=== PATIENT | male | born 1975 | race Caucasian/White ===

== ENCOUNTER 2018-06-23 08:06 | Observation (INO) | payer BC ==
[~2018-06-23] VITALS: Ht 160 cm; Wt 103.7 kg
[2018-06-23 08:37] LABS: BASO # 0.1 10^3/uL (0.0-0.2); BASO % 0.4 % (0.0-1.0); EOS # 0.1 10^3/uL (0.0-0.50); EOS % 0.8 % (0.0-3.0); HEMATOCRIT 44.5 % (42.0-52.0); HEMOGLOBIN 15.2 g/dl (13.5-17.5); LYMPH # 1.2 10^3/uL (1.5-4.5); LYMPH % 8.5 % (24.0-44.0); MEAN CORPUSCULAR HEMOGLOBIN 29.6 pg (27.0-33.0); MEAN CORPUSCULAR HGB CONC 34.2 g/dl (32.0-36.5); MEAN CORPUSCULAR VOLUME 86.6 fl (80.0-96.0); MONO # 1.1 10^3/uL (0.0-0.8); MONO % 7.5 % (0.0-5.0); NEUTROPHILS # 11.8 10^3/uL (1.8-7.7); NEUTROPHILS % 82.3 % (36.0-66.0); PLATELET COUNT, AUTOMATED 228 10^3/uL (150-450); RED BLOOD COUNT 5.14 10^6/uL (4.30-6.10); WHITE BLOOD COUNT 14.3 10^3/uL (4.0-10.0)
[2018-06-23] MEDS ORDERED: IBUPROFEN 800 MG TAB PO ONE (09:00)
[2018-06-23] MEDS ORDERED: NS 3,440 ML in APPROPRIATE DILUENT 1 EA IV ONE (09:00)
[2018-06-23] MEDS ORDERED: NS 1,000 ML IV ONE (09:00)
[2018-06-23] MEDS ORDERED: CLINDAMYCIN 600 MG in APPROPRIATE DILUENT 1 EA IV ONE (09:00)
[2018-06-23 09:05] LABS: ALBUMIN 3.9 GM/DL (3.2-5.2); ALT/SGPT 37 U/L (12-78); BILIRUBIN,DIRECT 0.2 MG/DL (0.0-0.2); BILIRUBIN,TOTAL 1.2 MG/DL (0.2-1.0); BLOOD UREA NITROGEN 11 MG/DL (7-18); CALCIUM LEVEL 8.8 MG/DL (8.5-10.1); CARBON DIOXIDE LEVEL 30 MEQ/L (21-32); CHLORIDE LEVEL 101 MEQ/L (98-107); CREATININE FOR GFR 1.07 MG/DL (0.70-1.30); GLOMERULAR FILTRATION RATE > 60.0 (>60); GLUCOSE, FASTING 304 MG/DL (70-100); POTASSIUM SERUM 3.9 MEQ/L (3.5-5.1); SODIUM LEVEL 136 MEQ/L (136-145); TOTAL PROTEIN 7.5 GM/DL (6.4-8.2)
[2018-06-23 11:47] LABS: HEMOGLOBIN A1c 8.9 %
[2018-06-23] MEDS ORDERED: BREO1INH3 INH (12:13)
[2018-06-23] MEDS ORDERED: LEVA1.2525 INH (12:13)
[2018-06-23 13:52] LABS: ERYTHROCYTE SEDIMENTATION RATE 36 mm/hr (0-15)
--- NOTE | 2018-06-23 14:28 | HPE ---
DATE OF ADMISSION: 06/23/2018 PRIMARY CARE PHYSICIAN: None. ENVIRONMENTAL TECHNICAL OFFICER: Dr. Ball CHIEF COMPLAINT: Left elbow pain. HISTORY OF THE PRESENT ILLNESS: The patient is a fairly healthy 43-year-old man who tells me that working several days ago at [employer], he banged his elbow on something. Shortly thereafter, he noticed some tenderness and swelling, which progressively worsened. He noted that last night he was having fevers and chills. This morning, it became more red and difficult to move, prompting him to present to the emergency room. At the present time, he tells me that he is feeling well, and after receiving some antibiotics, he is feeling improved. On review of systems, he does complain of recent polyuria, polydipsia that has been going on for several months. He was noted to have an elevated blood glucose in the emergency room as well. PAST MEDICAL HISTORY: Asthma. PAST SURGICAL HISTORY: Right elbow surgery. Septoplasty. Tonsillectomy. ALLERGIES: Patient does not remember the reactions; however, SULFA, AMOXICILLIN, CEFADROXIL, CLAVULANIC ACID, ERYTHROMYCIN, TETRACYCLINE. FAMILY HISTORY: Noncontributory. HOME MEDICATIONS: - Breo Ellipta 200-25 mcg one puff inhaled daily - levalbuterol nebulizer every 4 hours as needed for shortness of breath SOCIAL HISTORY: He works two jobs. 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 He did have one beer last night, but otherwise had not had an alcoholic beverage in 2 months. He denies any tobacco or illicit drug use. He is a [employer]. OBJECTIVE: VITAL SIGNS: Temperature 100, pulse 80, respiratory rate 18, blood pressure 153/91, oxygen saturation 94% on room air. GENERAL: He is a very pleasant middle-aged man sitting on a chair. He does not appear to be in any acute distress. HEENT: He has a large watt. Moist mucous membranes. NECK: No elevation of CVP. CARDIOVASCULAR EXAM: S1, S2 regular. RESPIRATORY EXAM: Clear. ABDOMINAL EXAM: Benign and obese. EXTREMITIES: He does have significant erythema, which has been outlined by the emergency room staff, of the left elbow. Otherwise no clubbing, cyanosis, or edema. He does have numerous tattoos. LABORATORY STUDIES: WBC 14.3, hemoglobin 15.2, platelet count 228. Chemistry panel: Sodium 136, potassium 3.9, chloride 101, bicarbonate 30, BUN 11, creatinine 1.0, lactic acid 1.3. Liver function tests essentially unremarkable. CRP is elevated at 10.4. Microbiology: Blood cultures were drawn and pending. X-RAYS: The patient did have an elbow x-ray, the results of which are currently pending. ASSESSMENT AND PLAN: This is a 43-year-old man with cellulitis, possible left elbow abscess and new diagnosis of diabetes. PROBLEMS: 1. Cellulitis. I will check an ultrasound to ensure that there is no deeper soft tissue abscess that required drainage. I will continue him on clindamycin, which he appears to be responding to quite well. He does have a low grade temperature and leukocytosis with evidence of early sepsis. He is actually hypertensive, so will hold off on providing him any IV fluids and monitor him closely. He does appear to be improving already. Advised warm compresses to the left elbow. I did suggest to him that he should notify his employer as this was on-site injury. 2. New onset diabetes. Polyuria, polydipsia with a glucose greater than 300. I will start him on metformin 500 mg by mouth twice a day, check hemoglobin A1c. I advise diabetic teaching. He will need to be set up with a Glucometer before discharge. I think he told me that he is arranging for a new primary care provider himself already. 3. Hypertension. Likely secondary to pain. Will continue to monitor closely. Should he need medication for this, will provide him with low dose lisinopril. 4. Asthma. Continue with albuterol nebulizers as needed. He does not exhibit any wheezing, is quite well compensated. His symptoms are well controlled at this time. DISPOSITION: The patient is admitted to observation status to the medical-surgical floor. He may be able to go home as early as tomorrow. Will continue to monitor very closely.
[2018-06-23] MEDS: CLINDAMYCIN 600 MG in APPROPRIATE DILUENT 1 EA IV SCH ×2 (14:53→21:23)
[2018-06-23 16:00] VITALS: BP 178/102
[2018-06-23] MEDS: LISINOPRIL 10 MG TAB PO SCH (16:12)
[2018-06-23] MEDS: ACETAMINOPHEN TAB 650MG DOSE (2X325MG) PO PRN (16:12)
[2018-06-23 17:00] VITALS: BP 158/86
[2018-06-23] MEDS: metFORMIN (GLUCOPHAGE) 500 MG TAB PO SCH (17:18)
[2018-06-23 22:00] VITALS: BP 152/78
[2018-06-24] MEDS: CLINDAMYCIN 600 MG in APPROPRIATE DILUENT 1 EA IV SCH ×4 (03:28→21:21)
[2018-06-24 06:00] VITALS: BP 132/62
[2018-06-24 06:08] LABS: HEMOGLOBIN 14.2 g/dl (13.5-17.5); MEAN CORPUSCULAR HGB CONC 33.8 g/dl (32.0-36.5); MEAN CORPUSCULAR VOLUME 88.6 fl (80.0-96.0); PLATELET COUNT, AUTOMATED 205 10^3/uL (150-450); RED BLOOD COUNT 4.74 10^6/uL (4.30-6.10); WHITE BLOOD COUNT 15.2 10^3/uL (4.0-10.0)
[2018-06-24 06:23] LABS: BLOOD UREA NITROGEN 15 MG/DL (7-18); CALCIUM LEVEL 8.8 MG/DL (8.5-10.1); CARBON DIOXIDE LEVEL 29 MEQ/L (21-32); CHLORIDE LEVEL 103 MEQ/L (98-107); CREATININE FOR GFR 0.97 MG/DL (0.70-1.30); GLOMERULAR FILTRATION RATE > 60.0 (>60); GLUCOSE, FASTING 208 MG/DL (70-100); POTASSIUM SERUM 3.8 MEQ/L (3.5-5.1); SODIUM LEVEL 139 MEQ/L (136-145)
[2018-06-24] MEDS: metFORMIN (GLUCOPHAGE) 500 MG TAB PO SCH ×2 (08:52→17:19)
[2018-06-24] MEDS: ACETAMINOPHEN TAB 650MG DOSE (2X325MG) PO PRN ×2 (08:53)
[2018-06-24] MEDS: LISINOPRIL 10 MG TAB PO SCH (08:57)
--- NOTE | 2018-06-24 09:11 | REP ---
Left elbow for views: I suspect soft tissue edema, predominately posterior. This should be confirmed clinically. There is no fracture or dislocation. Mineralization joint spaces are normal. There are no calcifications or foreign bodies. Impression: The skeletal structures are unremarkable. Soft tissue edema. Electronically Signed by Emir Ramirez MD 06/23/2018 08:51 A
--- NOTE | 2018-06-24 09:16 | REP ---
Ultrasound of the soft tissues at the left elbow and proximal forearm an area of spider bite: There is diffuse soft tissue edema throughout the area. At the elbow. There is a focal fluid collection containing complex fluid measuring 2.2 127 x 0.6 cm. With color Doppler assessment there is hyperemia at this area. This fluid collection may represent an abscess. There is a tract extending to the skin surface from this fluid collection. Electronically Signed by Emir Ramirez MD 06/23/2018 01:36 P
--- NOTE | 2018-06-24 13:55 | IPNPDOC ---
Date Seen The patient was seen on 06/24/18. Progress Note SUBJECTIVE: Patient complains of continued swelling left upper extremity tells me is less painful and is able to move it and started draining a little bit this morning OBJECTIVE PHYSICAL EXAMINATION: VITAL SIGNS: Please see below. GENERAL: Pleasant middle-aged obese man lying in bed he is currently by a friend the patient does not appear to be in any acute distress HEENT: Cranial nerves II through XII grossly intact CARDIOVASCULAR: Is 1 S2 regular. RESPIRATORY: Clear to auscultation bilaterally. ABDOMINAL: Obese bowel sounds present abdomen soft and nontender EXTREMITIES: 1+ edema to the left distal upper extremity decreased erythema there is some purulent drainage superficially into express approximately 3-4 mL further out LABORATORY DATA, IMAGING STUDIES, MICROBIOLOGY: Please see below. DVT prophylaxis ordered?: Ambulation ASSESSMENT AND PLAN: This is a 43-year-old man with cellulitis abscess at the left elbow as well as a new diagnosis of diabetes PROBLEMS: 1. Cellulitis and abscess. Fluid collection documented on ultrasound does appear to be draining somewhat today he tells me has not received any warm compresses and his abscess is actually covered with foam dressing at presentation and with stressing informed that it was to remain open also did speak with nursing staff greatly encourage warm compresses to help with the drainage he does have signi ficant swelling of the left upper extremity although is not erythematous I've encouraged him to keep it elevated. 2. New onset diabetes. Polyuria, polydipsia with a glucose greater than 300. I have started him on metformin 500 mg by mouth twice a day, A1c is elevated he is likely been undiagnosed for quite some time. I advise diabetic teaching. He will need to be set up with a Glucometer before discharge. I think he told me that he is arranging for a new primary care provider himself already. Finished 6 are controlled with metformin 3. Hypertension. Improved control after initiation of lisinopril 4. Asthma. Continue with albuterol nebulizers as needed. He does not exhibit any wheezing, is quite well compensated. His symptoms are well controlled at this time. DISPOSITION: Possibly home within the next 24-48 hours VS, I&O, 24H, Fishbone Vital Signs/I&O Vital Signs Date Time Temp Pulse Resp B/P (MAP) Pulse Ox O2 Delivery O2 Flow Rate FiO2 06/24/18 08:57 139/63 06/24/18 06:00 99.5 74 18 93 06/23/18 08:07 Room Air I&O- Last 24 Hours up to 6 AM 06/24/18 06:00 Intake Total 1520 ml Output Total 0 ml Balance 1520 ml Laboratory Data 24H LABS Laboratory Tests 2 06/23/18 17:00: Bedside Glucose (Misc Panel) 237H 06/23/18 21:51: Bedside Glucose (Misc Panel) 207H 06/24/18 05:43: Anion Gap 7L, Glomerular Filtration Rate > 60.0, Blood Urea Nitrogen 15, Creatinine 0.97, Sodium Level 139, Potassium Level 3.8, Chloride Level 103, Carbon Dioxide Level 29, Calcium Level 8.8 06/24/18 05:44: Nucleated Red Blood Cells % (auto) 0.0 06/24/18 11:29: Bedside Glucose (Misc Panel) 210H CBC/BMP Laboratory Tests 06/24/18 05:43 Calcium Level 8.8 06/24/18 05:44 Red Blood Count 4.74, Mean Corpuscular Volume 88.6, Mean Corpuscular Hemoglobin 30.0, Mean Corpuscular Hemoglobin Concent 33.8, Red Cell Distribution Width 12.8 Microbiology Microbiology 06/23/18 Blood Culture - Preliminary, Resulted No growth after 24 hours . All specim... 06/23/18 Blood Culture - Preliminary, Resulted No growth after 24 hours . All specim... RYAN CORTES MD Jun 24, 2018 13:55
[2018-06-24 14:00] VITALS: BP 139/62
[2018-06-24 17:47] VITALS: BP 165/86
[2018-06-24 20:00] VITALS: BP 189/74
[2018-06-24] MEDS ORDERED: **hydrALAZINE HCL** 25 MG TAB PO PRN (20:30)
[2018-06-24] MEDS: LEVALBUTEROL 1.25 MG/0.5 ML CONCENTRATE NEB INH PRN (21:21)
[2018-06-24 21:30] VITALS: BP_SYST 176; BP_SYST 179; BP_DIAS 72; BP_DIAS 92
[2018-06-25] VITALS: BP 145/63
[2018-06-25] MEDS: CLINDAMYCIN 600 MG in APPROPRIATE DILUENT 1 EA IV SCH ×2 (03:30→09:24)
[2018-06-25] MEDS: LEVALBUTEROL 1.25 MG/0.5 ML CONCENTRATE NEB INH PRN (05:07)
[2018-06-25 07:18] LABS: HEMATOCRIT 40.5 % (42.0-52.0); HEMOGLOBIN 13.7 g/dl (13.5-17.5); MEAN CORPUSCULAR HEMOGLOBIN 29.8 pg (27.0-33.0); MEAN CORPUSCULAR HGB CONC 33.8 g/dl (32.0-36.5); PLATELET COUNT, AUTOMATED 198 10^3/uL (150-450); WHITE BLOOD COUNT 9.6 10^3/uL (4.0-10.0)
[2018-06-25 07:40] LABS: BLOOD UREA NITROGEN 15 MG/DL (7-18); CALCIUM LEVEL 8.6 MG/DL (8.5-10.1); CARBON DIOXIDE LEVEL 29 MEQ/L (21-32); CHLORIDE LEVEL 105 MEQ/L (98-107); CREATININE FOR GFR 0.81 MG/DL (0.70-1.30); GLOMERULAR FILTRATION RATE > 60.0 (>60); GLUCOSE, FASTING 208 MG/DL (70-100); SODIUM LEVEL 137 MEQ/L (136-145)
[2018-06-25 08:00] VITALS: BP 156/78
[2018-06-25] MEDS ORDERED: CLEO300C2 PO (08:08)
[2018-06-25] MEDS ORDERED: GLUC500T PO (08:09)
[2018-06-25] MEDS ORDERED: LISI10TA4 PO (08:09)
[2018-06-25] MEDS ORDERED: SUMAtriptan SUCCINATE 25 MG TAB PO ONE (08:15)
[2018-06-25] MEDS: ACETAMINOPHEN TAB 650MG DOSE (2X325MG) PO PRN (08:19)
[2018-06-25] MEDS: metFORMIN (GLUCOPHAGE) 500 MG TAB PO SCH (08:20)
[2018-06-25 09:24] VITALS: BP 156/78
[2018-06-25] MEDS: LISINOPRIL 10 MG TAB PO SCH (09:24)
--- NOTE | 2018-06-25 15:21 | DSES ---
DATE OF ADMISSION: 06/23/2018 DATE OF DISCHARGE: 06/25/2018 DISCHARGE DIAGNOSIS: Left elbow abscess. SECONDARY DIAGNOSES: 1. New onset type 2 diabetes. 2. New onset hypertension. 3. Asthma. HOSPITAL COURSE: The patient is a 43-year-old man who had injured his elbow while banging it at work. He works at [employer]. Shortly thereafter, it became tender, swollen and red. It progressed swelled worse until it became difficult to move and painful for him, as well as having chills and fevers at home. He was admitted to the emergency room. He was started on clindamycin. While in the emergency room, he was found to have an elevated blood glucose level and found to be hypertensive. It was initially felt to be secondary to his pain. He was admitted to the hospitalist service. He was noted to have a hemoglobin A1/c elevated. In review of systems, he provided a history of polyuria, polydipsia. He does carry a new diagnosis of type 2 diabetes. He has been started on metformin 500 mg by mouth twice a day and has received diabetic teaching and how to use a Glucometer and one has been supplied to him. In regard to his left elbow abscess, warm compresses were placed. It did begin to drain spontaneously. He did have an ultrasound that did show a fluid collection prior to this. He was provided with clindamycin IV, but will be discharged home on oral clindamycin to complete a 10 day course. He has decreased erythema, swelling and tenderness and improved range of motion to the left elbow. SUBJECTIVE: This morning, the patient tells me that he is feeling well. He has a little bit of a headache but otherwise no complaints and would like to go home. OBJECTIVE: VITAL SIGNS: Temperature 98.3, pulse 88, respiratory rate 19, blood pressure 156/78, oxygen saturation 96% on room air. GENERAL: He is a very pleasant, obese, middle aged, man lying in bed. He is in no acute distress. HEENT: He does have a large watt. Moist mucous membranes. No elevation in central venous pressure. CARDIOVASCULAR: S1, S2 regular. RESPIRATORY EXAM: Clear. ABDOMINAL EXAM: Obese. Bowel sounds present. The abdomen is soft. EXTREMITIES: No clubbing or cyanosis. He has some trace edema in his left hand, decreased erythema, purulent drainage from the left elbow. Good range of motion. Reduced erythema and tenderness. LABORATORY STUDIES: WBC 9.6, down from 14.3 at the time of admission, hemoglobin 13.7, platelet count 198. Chemistry panel: Sodium 137, potassium 4.0, chloride 105, bicarbonate 29, BUN 15, creatinine 0.8. Microbiology was negative. IMAGING: As outlined above. ASSESSMENT AND PLAN: This is a 43-year-old man with abscess of the left elbow, as well as a new diagnosis of diabetes and hypertension. 1. Abscess of the left elbow with surrounding cellulitis, status post spontaneous drainage after warm compress. He will complete 10 days of clindamycin orally. He is advised to keep it elevated for the next few days to have the swelling decrease. He is advised to return to the emergency room should he have any fevers or chills. He was advised to leave the wound open to drainage, does not require any packing. It does appear to be improving. Followup with new primary care provider as soon as possible. 2. New onset diabetes. He does have a history of polyuria, polydipsia and a random glucose greater than 300. He has been started on metformin 500 mg by mouth twice a day. During his stay, he has received significant diabetic teaching and has already been supplied with a Glucometer. His fingersticks have been controlled with metformin. He will have to followup with his new primary care provider as soon as possible. 3. Hypertension. He was initiated on Lisinopril, which he has tolerated well. He will be discharged on this and followup with his primary care provider. Lifestyle modifications advised. 4. Morbid obesity, complicating care. 5. Asthma, stable and at baseline. He uses albuterol nebulizers, as well as Breo Ellipta and follows with Dr. Ball on the outpatient setting. DISPOSITION: The patient is being discharged home. He is independent of his activities of daily living. He is to be off work until after June 29. Followup with his primary care provider as soon as possible. Followup with hydrological technical officer as scheduled. Otherwise, his activity is as tolerated. Diet is consistent carbohydrate, 2-gram sodium. He is to return to the emergency room if his symptoms worsen. MEDICATIONS: At the time of discharge: - clindamycin 300 mg three times a day for 10 days - Lisinopril 10 mg daily - metformin 500 mg by mouth twice a day - Breo Ellipta 200/25 one puff inhaled daily - levalbuterol nebulizer 1.25 mg inhaled every 4 hours as needed for shortness of breath 45 minutes was spent organizing disposition.
== END 2018-06-25 12:40 | disposition home or self-care (01) ==
LOC: M ED 08:06 → M ED INP 12:13 → M MS5PR 14:00 → M PED 06-24 17:45
PROVIDERS: ADMIT Internal Medicine; ATTEND Internal Medicine
DX: L02.414 Cutaneous abscess of left upper limb (principal); E11.9 Type 2 diabetes mellitus without complications; I10 Essential (primary) hypertension; J45.909 Unspecified asthma, uncomplicated; E66.01 Morbid (severe) obesity due to excess calories; R50.9 Fever, unspecified; D72.829 Elevated white blood cell count, unspecified; Z79.899 Other long term (current) drug therapy; Z79.51 Long term (current) use of inhaled steroids; Z88.0 Allergy status to penicillin; Z88.1 Allergy status to other antibiotic agents; Z88.2 Allergy status to sulfonamides

== ENCOUNTER → 2018-07-27 | Outpatient (REF) | payer BC ==
[~2018-07-27] MED LIST: BREO1INH3 INH; CLEO300C2 PO; GLUC500T PO; LEVA1.2525 INH; LISI10TA4 PO
[2018-07-27 12:48] LABS: APPEARANCE, URINE CLEAR (CLEAR); BACTERIA, URINE AUTO NEGATIVE (NEGATIVE); BILIRUBIN, URINE AUTO NEGATIVE (NEGATIVE); BLOOD, URINE BLOOD NEGATIVE (NEGATIVE); COLOR, URINE YELLOW (YELLOW); GLUCOSE, URINE (UA) AUTO NEGATIVE (NEGATIVE); KETONE, URINE AUTO NEGATIVE (NEGATIVE); LEUKOCYTE ESTERASE, URINE AUTO NEGATIVE (NEGATIVE); NITRITE, URINE AUTO NEGATIVE (NEGATIVE); PROTEIN, URINE AUTO NEGATIVE (NEGATIVE); RBC, URINE AUTO 0 /HPF (0-3); SPECIFIC GRAVITY URINE AUTO 1.012 (1.002-1.035); SQUAMOUS EPITHELIAL CELL UR AU 0 /HPF (0-6); UROBILINOGEN, URINE AUTO 0.2 mg/dL (0.0-2.0); WBC, URINE AUTO 1 /HPF (0-3)
[2018-07-27 13:23] LABS: CREATININE, URINE 92.7 MG/DL; MALB URINE SIEMENS 22.5 MG/L; MAU/CREAT RATIO 24.2 MCG/MG (0.0-30.0)
[2018-07-27 13:24] LABS: BASO % 0.8 % (0.0-1.0); EOS # 0.1 10^3/uL (0.0-0.50); EOS % 1.6 % (0.0-3.0); HEMATOCRIT 45.6 % (42.0-52.0); HEMOGLOBIN 15.1 g/dl (13.5-17.5); LYMPH % 20.6 % (24.0-44.0); MEAN CORPUSCULAR HEMOGLOBIN 29.9 pg (27.0-33.0); MEAN CORPUSCULAR HGB CONC 33.1 g/dl (32.0-36.5); MEAN CORPUSCULAR VOLUME 90.3 fl (80.0-96.0); MONO # 0.5 10^3/uL (0.0-0.8); MONO % 10.8 % (0.0-5.0); NEUTROPHILS # 3.2 10^3/uL (1.8-7.7); NEUTROPHILS % 65.8 % (36.0-66.0); PLATELET COUNT, AUTOMATED 205 10^3/uL (150-450); RED BLOOD COUNT 5.05 10^6/uL (4.30-6.10); WHITE BLOOD COUNT 4.9 10^3/uL (4.0-10.0)
[2018-07-27 13:29] LABS: ALBUMIN 3.9 GM/DL (3.2-5.2); ALT/SGPT 52 U/L (12-78); BILIRUBIN,TOTAL 1.8 MG/DL (0.2-1.0); BLOOD UREA NITROGEN 15 MG/DL (7-18); CALCIUM LEVEL 8.6 MG/DL (8.5-10.1); CARBON DIOXIDE LEVEL 34 MEQ/L (21-32); CHLORIDE LEVEL 105 MEQ/L (98-107); CHOLESTEROL LEVEL 151 MG/DL (<200); CHOLESTEROL RISK RATIO 4.314 (<5); FREE T4 0.95 NG/DL (0.76-1.46); GLOMERULAR FILTRATION RATE > 60.0 (>60); GLUCOSE, FASTING 116 MG/DL (70-100); HDL CHOLESTEROL 35 MG/DL (>40); LDL CHOLESTEROL 94 MG/DL (<100); NON-HDL-C 116 MG/DL; POTASSIUM SERUM 4.3 MEQ/L (3.5-5.1); SODIUM LEVEL 141 MEQ/L (136-145); TOTAL 25(OH) VITAMIN D 22.3 NG/ML (30.0-100.0); TOTAL PROTEIN 6.9 GM/DL (6.4-8.2); TRIGLYCERIDES LEVEL 109 MG/DL (<150)
[2018-07-27 13:55] LABS: HEMOGLOBIN A1c 7.6 %
[2018-08-01 00:08] LABS: Lyme Disease IgG/IgM Antibodie <0.91 ISR (0.00-0.90); Lyme Disease IgM Ab Quantitati <0.80 index (0.00-0.79)
== END ==
LOC: M LAB REF 12:10
PROVIDERS: ATTEND Family Medicine
DX: Z13.228 Encounter for screening for other metabolic disorders (principal); E11.9 Type 2 diabetes mellitus without complications

== ENCOUNTER → 2018-11-02 | Outpatient (REF) | payer BC ==
[2018-11-02 13:33] LABS: ALBUMIN 4.2 GM/DL (3.2-5.2); ALT/SGPT 43 U/L (12-78); BILIRUBIN,TOTAL 1.3 MG/DL (0.2-1.0); BLOOD UREA NITROGEN 19 MG/DL (7-18); CALCIUM LEVEL 8.9 MG/DL (8.5-10.1); CARBON DIOXIDE LEVEL 31 MEQ/L (21-32); CHLORIDE LEVEL 104 MEQ/L (98-107); CHOLESTEROL LEVEL 164 MG/DL (<200); CHOLESTEROL RISK RATIO 4.315 (<5); CREATININE FOR GFR 0.88 MG/DL (0.70-1.30); GLOMERULAR FILTRATION RATE > 60.0 (>60); GLUCOSE, FASTING 120 MG/DL (70-100); HDL CHOLESTEROL 38 MG/DL (>40); LDL CHOLESTEROL 100 MG/DL (<100); NON-HDL-C 126 MG/DL; POTASSIUM SERUM 4.6 MEQ/L (3.5-5.1); SODIUM LEVEL 140 MEQ/L (136-145); TOTAL PROTEIN 6.8 GM/DL (6.4-8.2); TRIGLYCERIDES LEVEL 132 MG/DL (<150)
[2018-11-02 13:43] LABS: HEMOGLOBIN A1c 6.4 %
== END ==
LOC: M LAB REF 12:10
PROVIDERS: ATTEND Family Medicine
DX: E11.9 Type 2 diabetes mellitus without complications (principal)

== ENCOUNTER → 2019-02-06 | Outpatient (REF) | payer BC ==
[2019-02-06 13:16] LABS: ALBUMIN 4.3 GM/DL (3.2-5.2); ALT/SGPT 54 U/L (12-78); BLOOD UREA NITROGEN 22 MG/DL (7-18); CALCIUM LEVEL 9.3 MG/DL (8.5-10.1); CARBON DIOXIDE LEVEL 33 MEQ/L (21-32); CHLORIDE LEVEL 104 MEQ/L (98-107); CHOLESTEROL LEVEL 206 MG/DL (<200); CHOLESTEROL RISK RATIO 6.645 (<5); CREATININE FOR GFR 1.02 MG/DL (0.70-1.30); GLOMERULAR FILTRATION RATE > 60.0 (>60); GLUCOSE, FASTING 118 MG/DL (70-100); HDL CHOLESTEROL 31 MG/DL (>40); LDL CHOLESTEROL 139 MG/DL (<100); NON-HDL-C 175 MG/DL; POTASSIUM SERUM 4.7 MEQ/L (3.5-5.1); SODIUM LEVEL 142 MEQ/L (136-145); TRIGLYCERIDES LEVEL 182 MG/DL (<150)
[2019-02-06 13:25] LABS: HEMOGLOBIN A1c 6.5 %
== END ==
LOC: M LAB REF 11:53
PROVIDERS: ATTEND Family Medicine
DX: E11.9 Type 2 diabetes mellitus without complications (principal)

== ENCOUNTER → 2019-05-07 | Outpatient (REF) | payer BC ==
[2019-05-07 13:14] LABS: ALBUMIN 4.2 GM/DL (3.2-5.2); ALT/SGPT 61 U/L (12-78); BLOOD UREA NITROGEN 22 MG/DL (7-18); CALCIUM LEVEL 9.2 MG/DL (8.5-10.1); CARBON DIOXIDE LEVEL 31 MEQ/L (21-32); CHLORIDE LEVEL 106 MEQ/L (98-107); CHOLESTEROL LEVEL 161 MG/DL (<200); CHOLESTEROL RISK RATIO 4.878 (<5); CREATININE FOR GFR 0.98 MG/DL (0.70-1.30); GLOMERULAR FILTRATION RATE > 60.0 (>60); GLUCOSE, FASTING 114 MG/DL (70-100); HDL CHOLESTEROL 33 MG/DL (>40); LDL CHOLESTEROL 82 MG/DL (<100); NON-HDL-C 128 MG/DL; POTASSIUM SERUM 4.5 MEQ/L (3.5-5.1); SODIUM LEVEL 140 MEQ/L (136-145); TOTAL PROTEIN 6.8 GM/DL (6.4-8.2); TRIGLYCERIDES LEVEL 231 MG/DL (<150)
[2019-05-07 17:25] LABS: HEMOGLOBIN A1c 6.9 %
== END ==
LOC: M LAB REF 12:19
PROVIDERS: ATTEND Family Medicine
DX: E11.9 Type 2 diabetes mellitus without complications (principal); E78.5 Hyperlipidemia, unspecified

== ENCOUNTER → 2019-08-27 | Outpatient (REF) | payer BC ==
[2019-08-27 13:19] LABS: BASO % 0.8 % (0.0-1.0); EOS # 0.1 10^3/uL (0.0-0.5); EOS % 2.8 % (0.0-3.0); HEMATOCRIT 45.8 % (42.0-52.0); HEMOGLOBIN 15.4 g/dl (13.5-17.5); LYMPH # 1.2 10^3/uL (1.5-5.0); LYMPH % 24.7 % (24.0-44.0); MEAN CORPUSCULAR HEMOGLOBIN 29.7 pg (27.0-33.0); MEAN CORPUSCULAR HGB CONC 33.6 g/dl (32.0-36.5); MEAN CORPUSCULAR VOLUME 88.2 fl (80.0-96.0); MONO # 0.6 10^3/uL (0.0-0.8); MONO % 12.2 % (0.0-5.0); NEUTROPHILS # 2.9 10^3/uL (1.5-8.5); NEUTROPHILS % 59.3 % (36.0-66.0); PLATELET COUNT, AUTOMATED 210 10^3/uL (150-450); RED BLOOD COUNT 5.19 10^6/uL (4.30-6.10); WHITE BLOOD COUNT 4.9 10^3/uL (4.0-10.0)
[2019-08-27 13:50] LABS: HEMOGLOBIN A1c 6.3 %
[2019-08-27 13:54] LABS: ALT/SGPT 39 U/L (12-78); BILIRUBIN,TOTAL 1.4 MG/DL (0.2-1.0); BLOOD UREA NITROGEN 21 MG/DL (7-18); CALCIUM LEVEL 8.7 MG/DL (8.5-10.1); CARBON DIOXIDE LEVEL 28 MEQ/L (21-32); CHLORIDE LEVEL 106 MEQ/L (98-107); CHOLESTEROL LEVEL 127 MG/DL (<200); CHOLESTEROL RISK RATIO 3.432 (<5); CREATININE FOR GFR 0.84 MG/DL (0.70-1.30); GLOMERULAR FILTRATION RATE > 60.0 (>60); GLUCOSE, FASTING 107 MG/DL (70-100); HDL CHOLESTEROL 37 MG/DL (>40); LDL CHOLESTEROL 76 MG/DL (<100); NON-HDL-C 90 MG/DL; SODIUM LEVEL 139 MEQ/L (136-145); TOTAL PROTEIN 6.6 GM/DL (6.4-8.2); TRIGLYCERIDES LEVEL 70 MG/DL (<150)
[2019-08-27 14:15] LABS: TOTAL 25(OH) VITAMIN D 60.9 NG/ML (30.0-100.0)
== END ==
LOC: M LAB REF 12:08
PROVIDERS: ATTEND Family Medicine
DX: E11.9 Type 2 diabetes mellitus without complications (principal)

== ENCOUNTER → 2020-03-11 | Outpatient (REF) | payer BC ==
[2020-03-11 13:21] LABS: HEMOGLOBIN A1c 5.8 %
[2020-03-11 13:43] LABS: ALBUMIN 4.2 GM/DL (3.2-5.2); ALT/SGPT 50 U/L (12-78); BILIRUBIN,TOTAL 1.2 MG/DL (0.2-1.0); BLOOD UREA NITROGEN 18 MG/DL (7-18); CALCIUM LEVEL 8.8 MG/DL (8.5-10.1); CARBON DIOXIDE LEVEL 32 MEQ/L (21-32); CHLORIDE LEVEL 107 MEQ/L (98-107); CHOLESTEROL LEVEL 136 MG/DL (<200); CHOLESTEROL RISK RATIO 3.162 (<5); GLOMERULAR FILTRATION RATE > 60.0 (>60); GLUCOSE, FASTING 105 MG/DL (70-100); HDL CHOLESTEROL 43 MG/DL (>40); LDL CHOLESTEROL 72 MG/DL (<100); NON-HDL-C 93 MG/DL; POTASSIUM SERUM 4.2 MEQ/L (3.5-5.1); SODIUM LEVEL 142 MEQ/L (136-145); TOTAL PROTEIN 6.4 GM/DL (6.4-8.2); TRIGLYCERIDES LEVEL 104 MG/DL (<150)
== END ==
LOC: M LAB REF 12:23
PROVIDERS: ATTEND Family Medicine Addiction Medicine
DX: E11.9 Type 2 diabetes mellitus without complications (principal)

== ENCOUNTER → 2022-02-25 | Outpatient (CLI) | payer BC ==
[~2022-02-25] MED LIST changes: +LISI10TA22 PO; -LISI10TA4 PO
== END ==
LOC: M PLARAD 08:05
PROVIDERS: ATTEND Physician Assistant
DX: M75.42 Impingement syndrome of left shoulder (principal)

== ENCOUNTER → 2022-03-04 | Outpatient (REF) | payer BC ==
[2022-03-04 17:35] LABS: ALBUMIN 3.8 G/DL (3.2-5.2); ALKALINE PHOSPHATASE 48 U/L (46-116); ALT/SGPT 36 U/L (7.0-40); AST/SGOT 19 U/L (<34); BLOOD UREA NITROGEN 23 MG/DL (9-23); CALCIUM LEVEL 9.1 MG/DL (8.5-10.1); CARBON DIOXIDE LEVEL 26 MMOL/L (20-31); CHLORIDE LEVEL 101 MMOL/L (98-107); CHOLESTEROL LEVEL 140 MG/DL (<200); CHOLESTEROL RISK RATIO 3.29 (<5); CREATININE FOR GFR 0.74 MG/DL (0.70-1.30); GLOMERULAR FILTRATION RATE > 60.0 (>60); GLUCOSE, FASTING 145 MG/DL (60-100); HDL CHOLESTEROL 42.5 MG/DL (>40); LDL CHOLESTEROL 75.7 MG/DL (<100); NON-HDL-C 98 MG/DL; POTASSIUM SERUM 4.4 MMOL/L (3.5-5.1); SODIUM LEVEL 138 MMOL/L (136-145); THYROID STIMULATING HORMONE 0.946 uIU/ML (0.55-4.78); TOTAL PROTEIN 6.4 G/DL (5.7-8.2); TRIGLYCERIDES LEVEL 109 MG/DL (<150)
[2022-03-04 17:36] LABS: HEMOGLOBIN A1c 7.2 % (4.0-6.0)
== END ==
LOC: M LAB REF 16:14
PROVIDERS: ATTEND Family Medicine Addiction Medicine
DX: E11.9 Type 2 diabetes mellitus without complications (principal)

== ENCOUNTER → 2022-06-15 | Outpatient (REF) | payer BC ==
[2022-06-15 17:46] LABS: HEMOGLOBIN A1c 7.3 % (4.0-6.0)
[2022-06-15 17:58] LABS: ALBUMIN 4.2 G/DL (3.2-5.2); ALKALINE PHOSPHATASE 29 U/L (46-116); ALT/SGPT 56 U/L (7.0-40); AST/SGOT 32 U/L (<34); BILIRUBIN,TOTAL 0.8 MG/DL (0.3-1.2); BLOOD UREA NITROGEN 27 MG/DL (9-23); CALCIUM LEVEL 9.5 MG/DL (8.5-10.1); CARBON DIOXIDE LEVEL 30 MMOL/L (20-31); CHLORIDE LEVEL 97 MMOL/L (98-107); CHOLESTEROL LEVEL 178 MG/DL (<200); CREATININE FOR GFR 0.84 MG/DL (0.70-1.30); GLOMERULAR FILTRATION RATE > 60.0 (>60); GLUCOSE, FASTING 193 MG/DL (60-100); LDL CHOLESTEROL 129.8 MG/DL (<100); POTASSIUM SERUM 4.6 MMOL/L (3.5-5.1); SODIUM LEVEL 136 MMOL/L (136-145); THYROID STIMULATING HORMONE 0.241 uIU/ML (0.55-4.78); TRIGLYCERIDES LEVEL 141 MG/DL (<150)
== END ==
LOC: M LAB REF 16:29
PROVIDERS: ATTEND Family Medicine Addiction Medicine
DX: E11.9 Type 2 diabetes mellitus without complications (principal)

== ENCOUNTER → 2022-12-15 | Outpatient (REF) | payer BC ==
[2022-12-15 18:16] LABS: THYROID STIMULATING HORMONE 0.949 uIU/ML (0.55-4.78)
[2022-12-15 18:17] LABS: ALBUMIN 4.4 G/DL (3.2-5.2); ALKALINE PHOSPHATASE 57 U/L (46-116); ALT/SGPT 53 U/L (7.0-40); AST/SGOT 25 U/L (<34); BLOOD UREA NITROGEN 18 MG/DL (9-23); CALCIUM LEVEL 9.9 MG/DL (8.5-10.1); CARBON DIOXIDE LEVEL 32 MMOL/L (20-31); CHLORIDE LEVEL 100 MMOL/L (98-107); CHOLESTEROL LEVEL 135 MG/DL (<200); CHOLESTEROL RISK RATIO 3.07 (<5); CREATININE FOR GFR 0.78 MG/DL (0.70-1.30); GLOMERULAR FILTRATION RATE > 60.0 (>60); GLUCOSE, FASTING 145 MG/DL (60-100); HDL CHOLESTEROL 43.9 MG/DL (>40); LDL CHOLESTEROL 62.3 MG/DL (<100); NON-HDL-C 91.1 MG/DL; POTASSIUM SERUM 4.4 MMOL/L (3.5-5.1); SODIUM LEVEL 139 MMOL/L (136-145); TOTAL PROTEIN 7.1 G/DL (5.7-8.2); TRIGLYCERIDES LEVEL 144 MG/DL (<150)
[2022-12-15 18:54] LABS: HEMOGLOBIN A1c 7.2 % (4.0-6.0)
== END ==
LOC: M LAB REF 16:49
PROVIDERS: ATTEND Family Medicine Addiction Medicine
DX: E11.9 Type 2 diabetes mellitus without complications (principal)

== ENCOUNTER → 2023-02-24 | Outpatient (CLI) | payer BC | LOC: M RAD 08:04 | PROVIDERS: ATTEND Orthopaedic Surgery | DX: M75.122 Complete rotator cuff tear or rupture of left shoulder, not specified as traumatic (principal) ==

== ENCOUNTER → 2023-04-21 | Outpatient (CLI) | payer BC ==
[2023-04-21 10:29] LABS: ALBUMIN 4.3 G/DL (3.2-5.2); ALKALINE PHOSPHATASE 49 U/L (46-116); ALT/SGPT 46 U/L (7.0-40); AST/SGOT 20 U/L (<34); BILIRUBIN,TOTAL 1.2 MG/DL (0.3-1.2); BLOOD UREA NITROGEN 19 MG/DL (9-23); CALCIUM LEVEL 9.1 MG/DL (8.5-10.1); CARBON DIOXIDE LEVEL 30 MMOL/L (20-31); CHLORIDE LEVEL 101 MMOL/L (98-107); CREATININE FOR GFR 0.75 MG/DL (0.70-1.30); GLOMERULAR FILTRATION RATE > 60.0 (>60); GLUCOSE, FASTING 213 MG/DL (60-100); POTASSIUM SERUM 4.2 MMOL/L (3.5-5.1); SODIUM LEVEL 136 MMOL/L (136-145); TOTAL PROTEIN 6.6 G/DL (5.7-8.2)
== END ==
LOC: M LAB 09:34
PROVIDERS: ATTEND Orthopaedic Surgery
DX: Z01.818 Encounter for other preprocedural examination (principal)

== ENCOUNTER → 2023-07-03 | Outpatient (REF) | payer BC ==
[2023-07-03 13:18] LABS: HEMOGLOBIN A1c 7.5 % (4.0-6.0)
[2023-07-03 13:22] LABS: ALBUMIN 3.5 G/DL (3.2-5.2); ALKALINE PHOSPHATASE 44 U/L (46-116); ALT/SGPT 32 U/L (7.0-40); AST/SGOT 14 U/L (<34); BILIRUBIN,TOTAL 1.2 MG/DL (0.3-1.2); BLOOD UREA NITROGEN 16 MG/DL (9-23); CALCIUM LEVEL 8.7 MG/DL (8.5-10.1); CARBON DIOXIDE LEVEL 31 MMOL/L (20-31); CHLORIDE LEVEL 104 MMOL/L (98-107); CHOLESTEROL LEVEL 113 MG/DL (<200); CHOLESTEROL RISK RATIO 2.68 (<5); CREATININE FOR GFR 0.82 MG/DL (0.70-1.30); GLOMERULAR FILTRATION RATE > 60.0 (>60); GLUCOSE, FASTING 140 MG/DL (60-100); HDL CHOLESTEROL 42.1 MG/DL (>40); LDL CHOLESTEROL 37.7 MG/DL (<100); NON-HDL-C 70.9 MG/DL; SODIUM LEVEL 141 MMOL/L (136-145); TRIGLYCERIDES LEVEL 166 MG/DL (<150)
[2023-07-03 13:23] LABS: THYROID STIMULATING HORMONE 0.979 uIU/ML (0.55-4.78)
== END ==
LOC: M LAB REF 12:08
PROVIDERS: ATTEND Family Medicine Addiction Medicine
DX: E11.9 Type 2 diabetes mellitus without complications (principal)

== ENCOUNTER → 2024-01-09 | Outpatient (REF) | payer BC ==
[2024-01-09 18:48] LABS: ALBUMIN 4.1 G/DL (3.2-5.2); ALKALINE PHOSPHATASE 58 U/L (40-129); ALT/SGPT 55 U/L (7.0-40); AST/SGOT 19 U/L (<34); BILIRUBIN,TOTAL 1.1 MG/DL (0.3-1.2); BLOOD UREA NITROGEN 23 MG/DL (9-23); CALCIUM LEVEL 10.2 MG/DL (8.5-10.1); CARBON DIOXIDE LEVEL 31 MMOL/L (20-31); CHLORIDE LEVEL 102 MMOL/L (98-107); CHOLESTEROL LEVEL 130 MG/DL (<200); CHOLESTEROL RISK RATIO 3.93 (<5); CREATININE FOR GFR 0.79 MG/DL (0.70-1.30); GLOMERULAR FILTRATION RATE > 60.0 (>60); GLUCOSE, FASTING 127 MG/DL (60-100); LDL CHOLESTEROL 72.4 MG/DL (<100); POTASSIUM SERUM 4.1 MMOL/L (3.5-5.1); SODIUM LEVEL 138 MMOL/L (136-145); TOTAL PROTEIN 7.3 G/DL (5.7-8.2); TRIGLYCERIDES LEVEL 123 MG/DL (<150)
[2024-01-09 19:22] LABS: HIV 1&2 SCREEN NEGATIVE (NEGATIVE)
[2024-01-09 19:25] LABS: HEMOGLOBIN A1c 7.2 % (4.0-6.0)
== END ==
LOC: M LAB REF 17:14
PROVIDERS: ATTEND Family Medicine Addiction Medicine
DX: E11.9 Type 2 diabetes mellitus without complications (principal)

== ENCOUNTER → 2024-06-25 | Outpatient (REF) | payer BC ==
[2024-06-25 14:45] LABS: MALB URINE SIEMENS < 3.0 MG/L
[2024-06-25 19:14] LABS: ALBUMIN 4.1 G/DL (3.2-5.2); ALKALINE PHOSPHATASE 61 U/L (40-129); ALT/SGPT 46 U/L (7.0-40); AST/SGOT 29 U/L (<34); BLOOD UREA NITROGEN 18 MG/DL (9-23); CALCIUM LEVEL 9.6 MG/DL (8.5-10.1); CARBON DIOXIDE LEVEL 31 MMOL/L (20-31); CHLORIDE LEVEL 100 MMOL/L (98-107); CHOLESTEROL LEVEL 121 MG/DL (<200); CHOLESTEROL RISK RATIO 3.63 (<5); CREATININE FOR GFR 0.81 MG/DL (0.70-1.30); GLOMERULAR FILTRATION RATE > 90.0 (>60); GLUCOSE, FASTING 115 MG/DL (60-100); HDL CHOLESTEROL 33.3 MG/DL (>40); LDL CHOLESTEROL 70.9 MG/DL (<100); NON-HDL-C 87.7 MG/DL; POTASSIUM SERUM 4.2 MMOL/L (3.5-5.1); SODIUM LEVEL 137 MMOL/L (136-145); THYROID STIMULATING HORMONE 1.178 uIU/ML (0.55-4.78); TRIGLYCERIDES LEVEL 84 MG/DL (<150)
[2024-06-25 19:15] LABS: TESTOSTERONE 424 NG/DL (241-827)
== END ==
LOC: M LAB REF 13:41
PROVIDERS: ATTEND Family Medicine Addiction Medicine
DX: E11.9 Type 2 diabetes mellitus without complications (principal); I10 Essential (primary) hypertension

== ENCOUNTER → 2025-01-06 | Outpatient (REF) | payer BC ==
[2025-01-06 13:32] LABS: ESTIMATED AVERAGE GLUCOSE 160.0 MG/DL (60-110)
[2025-01-06 14:02] LABS: ALT/SGPT 59 U/L (7.0-40); AST/SGOT 25 U/L (<34); CALCIUM LEVEL 9.1 MG/DL (8.5-10.1); CARBON DIOXIDE LEVEL 30 MMOL/L (20-31); CHLORIDE LEVEL 100 MMOL/L (98-107); CHOLESTEROL LEVEL 112 MG/DL (<200); CHOLESTEROL RISK RATIO 3.26 (<5); CREATININE FOR GFR 0.80 MG/DL (0.70-1.30); GLOMERULAR FILTRATION RATE > 90.0 (>60); LDL CHOLESTEROL 53.5 MG/DL (<100); NON-HDL-C 77.7 MG/DL; POTASSIUM SERUM 4.1 MMOL/L (3.5-5.1); SODIUM LEVEL 141 MMOL/L (136-145); TRIGLYCERIDES LEVEL 121 MG/DL (<150)
== END ==
LOC: M LAB REF 12:39
PROVIDERS: ATTEND Family Medicine Addiction Medicine
DX: E11.9 Type 2 diabetes mellitus without complications (principal)